=== PATIENT | female | born 1950 | race Caucasian/White ===

== ENCOUNTER 2020-01-12 10:17 | Outpatient (CLI) | payer MEDICARE, OTHER, SELFPAY ==
--- NOTE | ~2020-01-12 | MM_ITS ---
EXAMINATION: MM scrn pacheco implant BI w sally HISTORY: Screening mammogram TECHNIQUE: Craniocaudal and mediolateral oblique 3-D tomosynthesis images with implant displacement a nd synthetic 2-D images were generated. Craniocaudal and mediolateral oblique views of the breasts wi thout implant displacement were obtained using full field digital mammography. CAD analysis was submi tted and interpreted. COMPARISON: Comparison to multiple prior studies sequentially, with oldest reviewed study dated 08/2013. BREAST PARENCHYMAL COMPOSITION: The breasts are heterogeneously dense, which may obscure small masses . FINDINGS: Stable benign-appearing right breast mass, lower inner quadrant. There are subpectoral sili cone implants. There is no evidence of suspicious mass, calcification, or architectural distortion to suggest malignancy in either breast. There has been no suspicious interval change. IMPRESSION: 1. No mammographic evidence of malignancy. 2. Recommend routine screening mammography in one year. BI-RADS Category 2: Benign finding(s). Reviewed, dictated and finalized at location A.
== END 2020-01-12 10:18 | disposition home or self-care (01) ==
PROVIDERS: PCP Obstetrics & Gynecology; Visit Provider Obstetrics & Gynecology
DX: Z12.31 Encounter for screening mammogram for malignant neoplasm of breast (principal)
CPT/HCPCS: 77063; 77067

== ENCOUNTER 2021-04-03 08:54 | Outpatient (CLI) | payer MEDICARE, OTHER, SELFPAY ==
--- NOTE | ~2021-04-03 | MM_ITS ---
EXAMINATION: MM scrn pacheco implant BI w sally HISTORY: Screening mammogram, family history of breast cancer in her mother and sister. TECHNIQUE: Craniocaudal and mediolateral oblique 3-D tomosynthesis images with implant displacement a nd synthetic 2-D images were generated. Craniocaudal and mediolateral oblique views of the breasts wi thout implant displacement were obtained using full field digital mammography. CAD analysis was submi tted and interpreted. COMPARISON: 01/12/2020, 12/26/2018, 12/15/2017 BREAST PARENCHYMAL COMPOSITION: There are scattered areas of fibroglandular density. FINDINGS: A stable mass in the inner right breast is considered benign given the lack of interval jr nge. There is no evidence of suspicious mass, calcification, or architectural distortion to suggest m alignancy in either breast. There has been no suspicious interval change. IMPRESSION: 1. No mammographic evidence of malignancy. 2. Recommend routine screening mammography in one year. BI-RADS Category 2: Benign finding(s). Reviewed, dictated and finalized at location A.
== END 2021-04-03 08:55 | disposition home or self-care (01) ==
PROVIDERS: PCP Obstetrics & Gynecology; Visit Provider Obstetrics & Gynecology
DX: Z12.31 Encounter for screening mammogram for malignant neoplasm of breast (principal)
CPT/HCPCS: 77063; 77067

== ENCOUNTER 2022-06-19 13:03 | Outpatient (CLI) | payer MEDICARE, OTHER, SELFPAY ==
--- NOTE | ~2022-06-19 | MM_ITS ---
EXAMINATION: MM scrn pacheco implant BI w sally HISTORY: Screening mammogram, family history of breast cancer in her mother and sister. TECHNIQUE: Craniocaudal and mediolateral oblique 3-D tomosynthesis images with implant displacement a nd synthetic 2-D images were generated. Craniocaudal and mediolateral oblique views of the breasts wi thout implant displacement were obtained using full field digital mammography. CAD analysis was submi tted and interpreted. COMPARISON: 04/03/2021, 01/12/2020, 12/26/2018 BREAST PARENCHYMAL COMPOSITION: There are scattered areas of fibroglandular density. FINDINGS: Again noted is a stable mass of the inner right breast. There is no evidence of suspicious mass, calcification, or architectural distortion to suggest malignancy in either breast. There has be en no suspicious interval change. IMPRESSION: 1. No mammographic evidence of malignancy. 2. Recommend routine screening mammography in one year. BI-RADS Category 2: Benign finding(s). Reviewed, dictated and finalized at location A. RICAL ANALYSIS GROUP MANAGER
== END 2022-06-19 13:04 | disposition home or self-care (01) ==
LOC: ANHIMG 13:08
PROVIDERS: PCP Emergency Medicine; Visit Provider Obstetrics & Gynecology
DX: Z12.31 Encounter for screening mammogram for malignant neoplasm of breast (principal)
CPT/HCPCS: 77063; 77067

== ENCOUNTER 2023-06-20 08:48 | Outpatient (CLI) | payer MEDICARE, OTHER, SELFPAY ==
--- NOTE | ~2023-06-20 | MM_ITS ---
EXAMINATION: MM scrn pacheco implant BI w sally HISTORY: Screening mammogram, family history of breast cancer in her mother and sister. TECHNIQUE: Craniocaudal and mediolateral oblique 3-D tomosynthesis images with implant displacement a nd synthetic 2-D images were generated. Craniocaudal and mediolateral oblique views of the breasts wi thout implant displacement were obtained using full field digital mammography. CAD analysis was submi tted and interpreted. COMPARISON: 06/19/2022, 04/03/2021, 01/12/2020 BREAST PARENCHYMAL COMPOSITION: There are scattered areas of fibroglandular density. FINDINGS: A stable mass of the inner right breast is again noted, consistent with a benign finding. T here is no evidence of suspicious mass, calcification, or architectural distortion to suggest maligna ncy in either breast. There has been no suspicious interval change. IMPRESSION: 1. No mammographic evidence of malignancy. 2. Recommend routine screening mammography in one year. BI-RADS Category 2: Benign finding(s). Reviewed, dictated and finalized at location A. ETRICS TECHNICIAN
== END 2023-06-20 08:49 | disposition home or self-care (01) ==
PROVIDERS: PCP Emergency Medicine; Visit Provider Emergency Medicine
DX: Z12.31 Encounter for screening mammogram for malignant neoplasm of breast (principal)
CPT/HCPCS: 77063; 77067

== ENCOUNTER 2024-03-29 13:43 | Outpatient (CLI) | payer MEDICARE, OTHER, SELFPAY ==
--- NOTE | ~2024-03-29 | XR_ITS ---
EXAMINATION: XR ankle LT min 3V DATE: 03/29/2024 14:06 INDICATION: Left ankle pain. TECHNIQUE: 4 views of left ankle were obtained. COMPARISON: None. FINDINGS: Bone alignment is normal. No fracture. There are dystrophic calcifications dorsal to navicu lar. Joint spaces are normal. IMPRESSION: 1. No fracture. Reviewed, dictated and finalized at location A. IMPRESSION: 1. No fracture.
--- NOTE | ~2024-03-29 | XR_ITS ---
EXAMINATION: XR foot LT 2V DATE: 03/29/2024 14:05 INDICATION: Left foot pain. TECHNIQUE: 2 views of left foot were obtained. COMPARISON: None. FINDINGS: Alignment is normal. No fracture. There is mild osteoarthritis of first metatarsophalangeal joint. IMPRESSION: 1. Mild osteoarthritis of first metatarsophalangeal joint. Reviewed, dictated and finalized at location A.
== END 2024-03-29 13:44 | disposition home or self-care (01) ==
LOC: MICIMG 13:45
PROVIDERS: PCP Emergency Medicine; Visit Provider Emergency Medicine
DX: M19.072 Primary osteoarthritis, left ankle and foot (principal)
CPT/HCPCS: 73610; 73620

== ENCOUNTER 2024-11-09 00:33 | Day surgery (SDC) | payer MEDICARE, OTHER, SELFPAY ==
[2024-10-28 14:27] VITALS: BMI 21.3
--- OUTSIDE RECORDS SUMMARY | 2024-11-09 00:42 | XMS_ITS | Patient Health Record ---
Author Organization [employer] [place] [facility] Address [address] [address] [place] [address] Care Team Providers Care Equipment Coordinator Name Role Phone Unknown, Primary Primary Care Provider Unavailab tess SilvaHaresh Unavailable [phone] Josef Wang Unavailable [phone] EnricoSoraida Unavailable [phone] Allergies No Known Allergies Results Component Value Reference Range Notes Flu - Myla ([id number]) Reviewed date:06/22/2024 10:21:15 AM Interpretation:neg Performing Lab: Notes/Report: neg COVID - Myla ([id number]) Reviewed date:06/22/2024 10:21:34 AM Interpretation:neg Performing Lab: Notes/Report: neg Reason For Referral No Information Medications Medication SIG (Take, Route, Frequency, Duration) Notes Start Date End Date Status hydroCHLOROthiazide 25 MG 1 tablet in th e morning Orally Once a day Active Albuterol Sulfate HFA 108 (9 0 Base) MCG/ACT 2 puff as needed Inhalation every 4 hrs for 30 06/24/2024 Active Immunizations Vaccine Route Administration Date Status Comme nts Tetanus toxoid, absorbed IM Intramuscular 05/03/2024 Admin istered Social History Tobacco Use: Social History Observation Description Date Details (start date - stop date) Never Smoker NA - NA Sex Assigned At : Social History Observation Description Sex Assigned At Unknown Tobacco Control (Standard) Question Answer Notes Tobacco use: Nonsmoker AUDIT-C (Standard) Question Answer Notes Did you have a drink contain ing alcohol in the past year? Yes How often did you have six o r more drinks on one occasion in the past year? Never (0 point) How many drinks did you have on a typical day when you were drinking in the past year? 1 or 2 drinks (0 point) How often did you have a dri nk containing alcohol in the past year? Monthly or less (1 point) Points 1 Interpretation Negative Problems Problem Type SNOMED Code ICD Code Onset Dates Problem Status W/U Status Risk Notes Problem 383420874 Urinary frequency (R35.0) Active confirmed Problem 159206487 Vaginal burning (N94.9) Active confirmed Vital Signs Heart Rate 119 /min 06/22/2024 Temperature 103.3 degrees Fahrenheit 06/22/2024 Blood pressure diastolic 70 mm Hg 06/22/2024 Oximetry 97 % 06/22/2024 Height 68 in 06/22/2024 Blood pressure systolic 110 mm Hg 06/22/2024 Weight 146 lbs 06/22/2024 BMI 22.2 kg/m2 06/22/2024 Procedures Procedure Date Ordered Date Performed Result Body Sit e RSV ASSAY W/OPTIC (In house) 06/22/2024 06/22/2024 POSITIV E NEBULIZER TREATMENT 06/22/2024 N/A Encounters Encounter Location Date Provider Diagnosis [facility] [address] [place] [address] 05/03/2024 Josef Felipe Body mass index [BMI ] 22.0-22.9, adult Z68.22 and Laceration without foreign body of left index finger without damage to nail, initial encounter S[facility]A [facility] [address] [place] [address] 05/12/2024 Josef Felipe Body mass index [BMI ] 22.0-22.9, adult Z68.22 and Laceration without foreign body of left index finger without damage to nail, initial encounter S6.A [facility] [address] [place] [address] 06/22/2024 Soraida Fullannika Body mass index [BMI ] 22.0-22.9, adult Z68.22 ; Other general symptoms and signs R68.89 ; Upper respiratory tract infection, unspecified type J06.9 and Acute bronchiolitis due to respiratory syncytial virus J21.[address] [facility] [address] [place] [address] 06/22/2024 Haresh Silva Upper respiratory tract infection, unspecified type J06.[address] [facility] [address] [place] [address] 06/23/2024 Haresh Silva Assessments Encounter Date Diagnosis (ICD Code) Assessment Notes Treatment Notes Treatment Clinical Notes Section Notes 05/03/2024 Body mass index [BMI] 22.0-22.9, adult (ICD-10 - Z68.22) 05/03/2024 Laceration without foreign body of left index finger without damage to nail, initial encounter (ICD-10 - S61.211A) 05/03/2024: After discussion of potential risks versus potential benefit of suturing the wound closed including but not limited to pain, swelling, permanent scar, infection and injection site reaction patient has elected to proceed with the procedure. Prior to injection the site was prepped and cleaned using Betadine in the sterile fashion. Local anesthesia has been accomplished by injecting with 4 cc lidocaine 1% injected via 27-gauge needle. After confirming successful local anesthesia was further cleaned and flushed. Wound was closed using 4 interrupted sutures of 4.0 Prolene with P3 needle. Also applied one Steri-Strip. Patient tolerated procedure well no complaints, minimal bleeding. After completion of the procedure the wound was dressed using a nonstick dressing, roll gauze, & aluminum splint. Patient has been given wound care and advised to monitor for signs of infection as discussed. Will return the office in 8-10 days. 05/12/2024 Body mass index [BMI] 22.0-22.9, adult (ICD-10 - Z68.22) 06/22/2024 Body mass index [BMI] 22.0-22.9, adult (ICD-10 - Z68.22) 06/22/2024 Upper respiratory tract infection, unspecified type (ICD-10 - J06.9) 06/22/2024 Other general symptoms and signs (ICD-10 - R68.89) 05/12/2024 Laceration without foreign body of left index finger without damage to nail, initial encounter (ICD-10 - S61.211A) from 05/12/2024: wound was inspected, cleaned all sutures were carefully removed using sterile technique. Bandage applied. The initial injury was from an electric margin trimmer as such wound had very jagged edges and partial avulsions. Wound is not fully closed. Advised patient to continue to keep wound site clean and dry until all skin is fully closed and healed over. Patient has been advised to keep wound clean and dry. Patient has been advised to change dressing once a day. We have discussed the potential adverse effects of swimming or bathing in any kind of standing water such as rico, lakes, oceans, hot tubs. Patient has been advised if there are any signs or symptoms of infection that include but are not limited to rash, fever, and foul odor to return back to the office or go to the emergency room 05/03/2024: After discussion of potential risks versus potential benefit of suturing the wound closed including but not limited to pain, swelling, permanent scar, infection and injection site reaction patient has elected to proceed with the procedure. Prior to injection the site was prepped and cleaned using Betadine in the sterile fashion. Local anesthesia has been accomplished by injecting with 4 cc lidocaine 1% injected via 27-gauge needle. After confirming successful local anesthesia was further cleaned and flushed. Wound was closed using 4 interrupted sutures of 4.0 Prolene with P3 needle. Also applied one Steri-Strip. Patient tolerated procedure well no complaints, minimal bleeding. After completion of the procedure the wound was dressed using a nonstick dressing, roll gauze, & aluminum splint. Patient has been given wound care and advised to monitor for signs of infection as discussed. Will return the office in 8-10 days. 06/22/2024 Upper respiratory tract infection, unspecified type (ICD-10 - J06.9) Patient RSV. Discussed viral illness. Pt to start nebulizer treatments. Discussed infection percautions. RTC as needed or with worsening SOb. 06/22/2024 Acute bronchiolitis due to respiratory syncytial virus (ICD-10 - J21.0) Respiratory Syncytial Virus (RSV) Infection: Care Instructions material was printed Plan Of Treatment Pending Test Test Name Order Date Physician's Office Use ONLY - Urinalysis 06/24/2018 NEBULIZER TREATMENT 06/22/2024 Insurance Providers Payer Name Payer Address Payer Phone Subscriber Number Group Number Insured Name Patient Relationship to Insured Coverage Start Date Coverage End Date Medicare Unaligned [address] [place] [phone] [id number] Isabel Vaz Self - patient is the insured [employer] [address] [place] [phone] [id number] Isabel Vaz Self - patient is the insured Medical (General) History Medical History History ICD Code Edema Surgical History Surgery Date(Month/Year) S/P right and left labrum repair shoulde r Right elbow surgery Hospitalization History Reason Date(Month/Year) See Surgical Hx
--- OUTSIDE RECORDS SUMMARY | 2024-11-09 00:42 | XMS_ITS | Referral Summary ---
Author Organization [facility] Address [address] [place] [address] Care Team Providers Care Decal Cutter Name Role Phone Mehul Gonzalez MD Primary Care Provider Allergies No known active allergies Medications BIOTIN ORAL Take as directed A ctive CALCIUM ORAL pt takes 600 mg daily Active estradiol (ESTRACE) 0.01 % (0.1 mg/gram) vaginal cream Insert into the vagina. Active hydroCHLOROthia zide (HYDRODIURIL) 25 mg tablet 8 Active hydroCHLOROthia zide (MICROZIDE) 12.5 mg capsule Take by mouth. Active magnesium oxide 500 mg capsule TAKE DIRECTED. Active polyethylene glycol-electrol ytes (NULYTELY) 420 gram solutionIndicat ions:Bowel Evacuation Please follow instructions in prep packet 7 Active fluorometholone (FML) 0.1 % ophthalmic suspensionIndic ations:Superfic ial punctate keratitis of both eyes Administer 1 drop into both eyes 3 (three) times a day. 5 mL 1 9 Active Additional Information Patient not taking.Reported on 06/08/2019 vit C,B-An-qhniy-ethan tein-zeaxan 250-90-40-1 mg capsule Active alendronate (FOSAMAX) 70 mg tablet Take 1 tablet (70 mg total) by mouth every 7 days Take in the morning with a full glass of water, on an empty stomach, and do not take anything else by mouth or lie down for the next 30 min. 12 tablet 3 2 Active calcium carbonate-vitam in D3 1,500 mg (600 mg elemental)-500 unit capsule Active mometasone (ELOCON) 0.1 % cream APPLY TO THE AFFECTED AREA ON SKIN NEEDED 45 g 1 3 Active Active Problems Problem Noted Date Diagnosed Date Follicular cyst of the skin and subcutaneous tissue, unspecified 11/27/2018 Meibomian gland disease 08/07/2018 Age-related nuclear cataract of both eyes 2018 Superficial punctate keratitis of both eyes 07/15 Posterior vitreous detachment of left eye 2018 Encounter for removal of sutures 12/19/2017 Scars 12/11/2017 Skin neoplasm 12/11/2017 Keratinous cyst 12/11/2017 Excoriated papule 12/11/2017 Osteopenia 04/17/2017 Osteopenia 04/17/2017 Benign neoplasm of skin of trunk 10/31/2015 Asymmetrical sensorineural hearing loss 06/21/20 15 Conductive hearing loss of left ear 03/24/2015 Presbycusis 03/24/2015 Inflamed seborrheic keratosis 12/02/2013 Eczema 12/02/2013 Varicose veins of both legs with edema 3 Eczema 05/24/2013 Social History Tobacco Use Types Packs/Day Years Used Date Smoking Tobacco: Former Smokeless Tobacco: Never Tobacco Cessation:Counseling Given: Not Answered Personal Safety Answer Date Recorded Getting School Help Needed Not on file 06/29 Comments Unknown Sex and Gender Information Value Date Recorded Sex Assigned at Not on file Legal Sex Female 9:37 AM DOCTOR OF PHARMACY Gender Identity Not on file Sexual Orientation Not on file Occupation Industry Job Start Date Job End Date Retired Not on file Not on file Not on file Last Filed Vital Signs Vital Sign Reading Time Taken Comments Blood Pressure 114/72 04/17/2017 10:09 AM CDT Pulse 68 04/17/2017 10:09 AM CDT Temperature - - Respiratory Rate - - Oxygen Saturation 100% 04/17/2017 10:09 AM CDT Inhaled Oxygen Concentration - - Weight 64 kg (141 lb) 03/17/2024 3:09 PM CDT Height 174 cm (5' 8.5 ) 03/17/2024 3:09 PM CDT Body Mass Index 21.13 03/17/2024 3:09 PM CDT Plan of Treatment Not on file Procedures Procedure Name Priority Date/Time Associated Diagnosis Comments DEXA TBS AXIAL SKELETON BONE DENSITY 1 OR MORE SITES Schedule Routine, Read Routine (OP Routine) 03/17/2024 3:09 PM CDT Osteopenia of multiple sites COLONOSCOPY REPORT 04/28/2017 from Last 3 Months or Most Recently Relevant to Health Maintenance Results * Dexa TBS Axial Skeleton Bone Density 1 or more sites (03/17/2024 3:09 PM CDT) Anatomical Region Laterality Modality Wrist, Body N/A Radiographic Ifrah ging Narrative 03/17/2024 7:55 PM CDT Patient Name: Hal Mckeon Date of : 1950 Date of scan: 03/17/2024 Bone mineral density was performed on a [employer]oL[employer] Discovery Densitometer. Based on machine cross-calibration and precision studies the least significant changes of this densitometer is 0.024 g/cm2 at the spine, 0.020 g/cm2 at the total proximal femur, and 0.014g/cm2 at the forearm. HISTORY: This is a 74 y.o. postmenopausal female with a history of osteoporosis. She reports that she has quit smoking. She has never used smokeless tobacco. Currently on treatment with calcium, vitamin D, and diuretics and previously treated with alendronate (Fosamax). INDICATIONS: Menopause status and history of osteoporosis. FINDINGS: BONE MINERAL DENSITY OF THE LUMBAR SPINE Bone Mineral Density (BMD) of the lumbar spine was measured from L1-L4 and the average density was calculated to be 0.886 gm/cm2. This corresponds to a T-score (standard deviations from the mean of young adults) of -1.5. When compared to the previous study of 06/11/2022 there has been a -0.031 gm/cm (-3.4%) decrease in bone density that is considered significant. BONE MINERAL DENSITY OF THE PROXIMAL FEMUR Bone Mineral Density (BMD) of the left hip total was found to be 0.783 gm/cm2. This corresponds to a T-score standard deviations from the mean of young adults of -1.3. Femoral neck is 0.731 gm/cm2 with a T-score (standard deviations from the mean of young adults) of -1.1. When compared to the previous study of 06/11/2022 there has been no significant changes in bone density. SUMMARY: Bone mineral density shows evidence of low bone mass at the lumbar spine and proximal femur and moderately increased fracture risk (Osteopenia). There has been a significant decrease in bone density since previous measurement. The lumbar spine Trabecular Bone Score is 1.324 which suggests normal bone microarchitecture, compared to the general population. Final decisions regarding diagnostic or therapeutic recommendations should include BMD, TBS, additional clinical risk factors as well the clinical context of the patient. Please see attached TBS results for further details. ADDITIONAL COMMENTS: Postmenopausal Women and Men Over 50: Diagnostic criteria: Osteoporosis: BMD at or below -2.5 T-score; Osteopenia (low bone mass): BMD between -1.0 and -2.5 T-score. If the patient has a history of a fragility fracture, a fracture that occurred with trauma equivalent to a fall from a standing position or less, then the diagnosis is osteoporosis regardless of bone density. The history and data sections of the bone mineral density scan were prepared by Rosi Peterson(Christopher) CBDSarah who is accredited by the International Society of Clinical Densitometry. The overall patient assessment and scan interpretation were performed by Naomie Almanzar MD who is certified by the International Society of Clinical Densitometry. [id number] Naomie Almanzar MD IMG DXA PROCEDURES Final Resu lt * COLONOSCOPY REPORT (04/28/2017) Anatomical Region Laterality Modality Other Provider Scanning GI PROCEDURE ORDERABLES Final Result from Last 3 Months or Most Recently Relevant to Health Maintenance Insurance MEDICARE Member Subscriber Plan / Payer (Ef fective 2017-Present) Name:HAL MCKEON Member ID:[id number] Relation to Subscriber:Self Name:Hal Mckeon Subscriber ID:[id number] Payer ID:[id number] Group ID:Not on file Type:MEDICARE TRADITIONAL Address: [address] [place] [phone] [employer] MED[employer] [employer] Care Teams Decal Cutter Relationship Specialty Start Date End Date Mehul Gonzalez MD PCP - General 04/17/17
--- OUTSIDE RECORDS SUMMARY | 2024-11-09 00:42 | XMS_ITS | Clinical Summary ---
Author Organization [facility] Address [address] [place] [address] Care Team Providers Care Sql Application Developer Name Role Phone Mehul Gonzalez MD Primary Care Provider [phone] Allergies No known active allergies Medications BIOTIN [...] Information Patient not taking.Reported on 06/08/2019 vit C,E-Jv-uwyry-ethan tein-zeaxan 250-90-40-1 mg capsule Active alendronate (FOSAMAX) [...] both legs with edema 3 Eczema 05/24/2013 Surgical History Surgery Date Site/Laterality Comments ELBOW SURGERY Medical History Medical History Date Comments Cancer (HCC) Osteoporosis Urinary tract infection Family History Medical History Relation Name Comments Cancer Brother Family history of malignant neoplasm - (Added by TW Conv) Alzheimer's disease Father Family h istory of Alzheimer's disease - (Added by TW Conv) Heart disease Father Family history of cardiac disorder - (Added by TW Conv) Prostate cancer Father Family histo ry of malignant neoplasm of prostate - (Added by TW Conv) Skin cancer Father Family history of skin cancer - (Added by TW Conv) Breast cancer Mother Family history of malignant neoplasm of breast - (Added by TW Conv) Heart disease Mother Family history of cardiac disorder - (Added by TW Conv) Stroke Mother Family history of cerebrovascular accident - (Added by TW Conv) Breast cancer Sister Family history of malignant neoplasm of breast - (Added by TW Conv) Relation Name Status Comments Brother Father Alive Mother Alive Sister Social History Tobacco Use Types Packs/Day Years Used Date Smoking Tobacco: Former Smokeless Tobacco: Never Tobacco Cessation:Counseling Given: Not Answered Personal Safety Answer Date Recorded Getting School Help Needed Not on file 12/17 /2023 Comments Unknown Sex and Gender Information Value Date Recorded Sex Assigned at Not on file 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 Gender Identity Not on file Sexual Orientation Not on file Occupation Industry Job Start Date Job End Date Retired Not on file Not on file Not on file Obstetrics History Last Filed Vital Signs Vital Sign Reading [...] 03/17/2024 3:09 PM CDT Plan of Treatment Health Maintenance Due Date Last Done Comments Breast Cancer Screening-Mammogram 1950 Depression Screening 1950 Fall Risk Assessment 1950 Hepatitis C Screening 1950 Hepatitis B Screening 01/20/1970 Well Visit 65+ 01/20/2017 Pneumococcal vaccine 65+ (2 of 2 - PPSV23) 03/24/2018 03/24/2017 Zoster Vaccine (2 of 2) 03/03/2020 01/07/2020 DTaP/Tdap/Td Vaccine (2 - Td or Tdap) 02/03/2024 02/02/2014 Covid-19 Vaccine (4 - 2023-2 5 season) 2024 12/03/2021, 09/15/2020, 08/25/2020 Influenza Vaccine (#1) 2024 9, 05/29/2017, 06/13/2015, Additional history exists Osteoporosis Screening-Bone Density Scan 03/17/2026 03/17/2024, 06/11/2022, 12/05/2020, Additional history exists Colon Cancer Screening-Colonoscopy 04/28/2027 04/28/2017 Colon Cancer Screening-CT Colonography Discontinued 04/28/2017 Colon Cancer Screening-DNA Stool Discontinued 04/28/20 17 Colon Cancer Screening-FIT Discontinued 04/28/2017 Colon Cancer Screening-Sigmoidoscopy Discontinued 04/28/2017 Procedures Procedure Name Priority Date/Time Associated Diagnosis [...] Bone mineral density was performed on a Holoyouwho Discovery Densitometer. Based on machine cross-calibration and [...] by the International Society of Clinical Densitometry. [id number] Naomie Almanzar MD IMG DXA PROCEDURES Final Resu lt * COLONOSCOPY REPORT (04/28/2017) Anatomical Region Laterality Modality Other Provider Scanning GI PROCEDURE ORDERABLES Final Result from Last 3 Months or Most Recently Relevant to Health Maintenance Insurance MEDICARE [employer] [place] MEDICARE [employer] [place] Care Teams Sql Application Developer Relationship Specialty Start Date End Date Mehul Gonzalez MD [facility] - General 04/17/17
--- OUTSIDE RECORDS SUMMARY | 2024-11-09 00:42 | XMS_ITS | Clinical Summary ---
Author Organization [facility] Address [address] [place] [address] Phone Care Team Providers Care Grounding Engineer Name Role Phone Unavailable Primary Care Provider Unavailabl e Allergies No known active allergies Medications nitrofurantoin (MACROBID) 100 mg capsule Take 1 capsule by mouth twice daily 10 Capsule 05/28/2018 1:49 PM COMMERCIAL SINGER 05/28/2018 Active Encounters Date Type Department Care Team Description 09/29/2024 External Device Data [facility] Provider, Abstract 09/18/2024 External Device Data [facility] Provider, Abstract 09/17/2024 External Device Data [facility] Provider, Abstract 09/14/2024 External Device Data [facility] Provider, Abstract 08/31/2024 External Device Data [facility] Provider, Abstract from Last 3 Months Social History Tobacco Use Types Packs/Day Years Used Date Smoking Tobacco: Never Assessed Comments Unknown Sex and Gender Information Value Date Recorded Sex Assigned at Not on file Legal Sex Female 8:24 AM COMMERCIAL SINGER Gender Identity Not on file Sexual Orientation Not on file Plan of Treatment Health Maintenance Due Date Last Done Comments DTAP/TDAP/TD VACCINES (1 - Tdap) 01/20/1971 BREAST CANCER SCREENING 1992 COLORECTAL SCREENING 01/20/1997 Colorectal Cancer Screening 01/20/1997 FIT-DNA Q 3 years 01/20/1997 FIT/FOBT Q 1 year 01/20/1997 Flex Sig/CT Colonography Q 5 years 01/20/1997 PNEUMOCOCCAL VACCINE 50+ YEA RS (1 of 1 - PCV) 01/20/2002 ZOSTER VACCINE (1 of 2) 01/20/2002 INFLUENZA VACCINE (#1) 2024 06/03/2016 RSV VACCINE (60+ or ) (1 - 1-dose 75+ series) 01/20/2027 OSTEOPOROSIS SCREENING 03/17/2029 , 03/17/2024, 06/11/2022, Additional history exists Insurance RX [employer] RX Member Subscriber Plan / Payer (Ef fective for All Dates) Name:McintyreIsabel Relation to Subscriber:Self Name:Mcintyre, Isabel Payer ID:Not on file Group ID:[id number] Type:RX Medicare Part D Address: [place] MEDICARE PART A AND B [facility]
--- OUTSIDE RECORDS SUMMARY | 2024-11-09 00:42 | XMS_ITS ---
Author Organization [facility] Address [address] [facility] [address] [place] [address] Care Team Providers Care Security Solutions Architect Name Role Phone Unknown, Primary Primary Care Provider Unavailab Haresh Terrell Unavailable [phone] REASON FOR VISIT Rx Medications Medication SIG (Take, Route, Fr equency, Duration) Notes Start Date End Date Status Azithromycin 250 MG 2 tablet on the firs t day, then 1 tablet daily for 4 days Orally Once a day for 5 day(s) 06/28/2024 A ctive Social History Sex Assigned At : Social History Observation Description Sex Assigned At Unknown Encounters Encounter Location Date Provider [facility] [address] [place] [address] 06/22/2024 Haresh Silva Upper respiratory tract infection, unspecified type J06.9 Assessments Encounter Date Diagnosis (ICD Code) Assessment Notes Treatment Notes Treatment Clinical Notes Section Notes 06/22/2024 Upper respiratory tract infection, unspecified type (ICD-10 - J06.9) Plan Of Treatment Medication Medication Name Sig Start Date Stop Date Notes Azithromycin 250 MG 2 tablet on the firs t day, then 1 tablet daily for 4 days Orally Once a day for 5 day(s) 06/28/2024 Progress Notes * Isabel MCKEON MDOB:[birth year] (74 yo F)Acc No.[id number]:06/22/2024 Patient: Isabel MEEK :1950 A ge:74 Y S ex:Female Address:[address] [place] [address] [place], [place] [address] * Refills Refill Azithromycin Tablet, 250 MG, Orally, 6, 2 tablet on the first day, then 1 tablet daily for 4 days, Once a day, 5 day(s), Refills=0 * true * Date: Generated for Kirsten rasheed/Amanda/Brijeshitting on: 0 11/09/2024 01:40 AM EDT
--- OUTSIDE RECORDS SUMMARY | 2024-11-09 00:42 | XMS_ITS ---
Author Organization [facility] Address [address] [facility] [address] [place] [address] Care Team Providers Care Skin Fitter Name Role Phone Unknown, Primary Primary Care Provider Unavailab tess Haresh Silva Unavailable [phone] FullSoraida roblero Unavailable [phone] Results Component Value Reference Range Notes Flu - Myla ([id number]) Reviewed date:06/22/2024 10:21:15 AM Interpretation:neg Performing Lab: Notes/Report: neg COVID - Myla ([id number]) Reviewed date:06/22/2024 10:21:34 AM Interpretation:neg Performing Lab: Notes/Report: neg REASON FOR VISIT Sore throat/mucus/cough/--[facility], received zpak---S4 Medications Medication SIG (Take, Route, Frequency, Duration) Notes Start Date End Date Status hydroCHLOROthiazide 25 MG 1 tablet in th e morning Orally Once a day Active Albuterol Sulfate HFA 108 (9 0 Base) MCG/ACT 2 puff as needed Inhalation every 4 hrs for 30 06/24/2024 Active Social History Sex Assigned At : Social History Observation Description Sex Assigned At Unknown Vital Signs Height 68 in 06/22/2024 Weight 146 lbs 06/22/2024 Blood pressure systolic 110 mm Hg 06/22/20 24 Blood pressure diastolic 70 mm Hg Temperature 103.3 degrees Fahrenheit Heart Rate 119 /min 06/22/2024 Oximetry 97 % 06/22/2024 BMI 22.2 kg/m2 06/22/2024 Procedures Procedure Date Ordered Date Performed Result Body Sit e NEBULIZER TREATMENT 06/22/2024 N/A RSV ASSAY W/OPTIC (In house) 06/22/2024 06/22/2024 POSITIV E Encounters Encounter Location Date Provider Diagnosis Cheryle Delgadillo [address] [facility] [place] [address] 06/22/2024 Soraida Fullgrapp Body mass index [BMI ] 22.0-22.9, adult Z68.22 ; Other general symptoms and signs R68.89 ; Upper respiratory tract infection, unspecified type J06.9 and Acute bronchiolitis due to respiratory syncytial virus J21.0 Assessments Encounter Date Diagnosis (ICD Code) Assessment Notes Treatment Notes Treatment Clinical Notes Section Notes 06/22/2024 Body mass index [BMI] 22.0-22.9, adult (ICD-10 - Z68.22) 06/22/2024 Other general symptoms and signs (ICD-10 - R68.89) 06/22/2024 Upper respiratory tract infection, unspecified type (ICD-10 - J06.9) Patient RSV. Discussed viral illness. Pt to start nebulizer treatments. Discussed infection percautions. RTC as needed or with worsening SOb. 06/22/2024 Acute bronchiolitis due to respiratory syncytial virus (ICD-10 - J21.0) Respiratory Syncytial Virus (RSV) Infection: Care Instructions material was printed Plan Of Treatment Medication Medication Name Sig Start Date Stop Date Notes Albuterol Sulfate HFA 108 (9 0 Base) MCG/ACT 2 puff as needed Inhalation every 4 hrs for 30 06/24/2024 Treatment Notes Assessment Notes Upper respiratory tract infe ction, unspecified type Patient RSV. Discussed viral illness. Pt to start nebulizer treatments. Discussed infection percautions. RTC as needed or with worsening SOb. Acute bronchiolitis due to r espiratory syncytial virus Respiratory Syncytial Virus (RSV) Infection: Care Instructions material was printed Pending Test Test Name Order Date NEBULIZER TREATMENT 06/22/2024 Next Appt Details Follow Up: prn, Reason: If n o improvement or worsening of symptoms Progress Notes * Isabel MCKEON MDOB:[birth year] (74 yo F)Acc No.[id number]:06/22/2024 Patient: Isabel MEEK Provider: Meggan Weston PA-C :1950 A ge:74 Y S ex:Female Date:06/22/2024 Address:[address] [place] [address] [place], [id number] Pcp:Primary Unknown Subjective: * Chief Complaints: * S ore throat/mucus/cough/--[facility], received zpak---S4 * HPI: I nterim History: TeleVisit Consent P atient consents to being treated by provider using telehealth visits, virtual check-in or e-visit type of service. Patients was advised that co-pays and balances may apply and assumes financial responsibility for applicable charges. Y es v isit was completed via: [facility] Coronavirus Screening H ave you had a fever of 100.4 or higher or experienced flulike symptoms within the last 14 days? Y es H as anyone in your household or immediate care experienced a recent onset of flulike symptoms including fever of 100.4 or higher, cough or difficulty breathing? N o H ave you or anyone in your household traveled by plane or cruise within the last 14 days? N o H ave you or any immediate family member come into contact with a patient with confirmed COVID-19 Coronavirus infection within the last 14 days??No H ave you or anyone in your household been tested for COVID-19 in the last 14 days? Y es T est result: N egative Patient presents today for upper respiratory symptoms for the past few days. Patient reports productive cough with expectoration, nasal congestion. Patient denies fever, chills, myalgias, shortness of breath at rest. Patient reports shortness of breath with coughing fits. was evaluated at urgent care 4 days ago and given azithromycin. Patient has taken vvrm-qjs-nvozznk medication without relief of symptoms. Patient presents for further evaluation. * ROS: M D ROS: Constitutional D enies:, Fever, Chills, Body Aches, Fatigue . H EENT P atient reports nasal congestion. Patient denies: HEAD:,lightheadedness, dizziness EYE: , Vision changes, Pain, Redness EAR:, Hearing loss,, Ear Pain NOSE:, Sinus Pain THROAT:, Sore Throat, Difficulty Swallowing Neck - Denies, Swollen Glands, Stiffness. R espiratory R eports productive cough with mucus. D enies Shortness of Breath at rest.. C ardiovascular D enies, Chest Pain, Palpitations, Irregular Heart Beat. G astrointestinal D enies , Changes in appetite, Heartburn, Nausea, Vomiting, Diarrhea, Constipation. G enitourinary D enies , Burning with Urination, Urinary frequency, Urinary urgency. M usculoskeletal D enies: , Stiffness, Muscle Pain, Weakness, Low back pain, Limitation of Movement. D ermatology D enies: , Rash, Itching, Burning , Redness. N eurology D enies: , Headache, Syncope, Seizures, Paralysis, Numbness/loss of sensation.?Hematology/Oncology Patient denies easy bleeding. * Medical History: * Surgical History: R ight elbow surgery S/P right and left labrum repair shoulder * Hospitalization/Major Diagno stic Procedure: S ee Surgical Hx * Family History: F ather: . M other: . 4 brother(s) , 3 sister(s) . 1 son(s) , 1 daughter(s) . . * Social History: A lcohol: A pollo C D id you have a drink containing alcohol in the past year: Yes, How often did you have a drink containing alcohol last year?: Never (0 points), How many drinks did you have on a typical day when you are drinking in the past year?: 1 or 2 (0 points), How often did you have six or more drinks on one occasion in the past year?: Never (0 points), Points: 0, Interpretation: Negative. * Medications: T akinghydroCHLOROthiazide 25 MG Tablet 1 tablet in the morning Orally Once a day Medication List reviewed and reconciled with the patientTaking hydroCHLOROthiazide 25 MG Tablet 1 tablet in the morning Orally Once a day Medication List reviewed and reconciled with the patient * Allergies: n o[Allergies Verified] Objective: * Vitals: Ht 68 in 06/22/2024 09:32:43 AM EST Wt* 146lbs 06/22/2024 09:58:45 AM EST Sharlene ch BP* 110/70mm Hg 06/22/2024 10:31:56 AM PARIS ch Temp* 103.3F 06/22/2024 10:31:56 AM PAR[place] ch HR* 119/min 06/22/2024 10:31:56 AM PAR[place] ch Oxygen sat %* 97% 06/22/2024 10:31:56 AM PARIS ch No Pain Present* 0 06/22/2024 10:31:56 AM PARIS ch BMI* 22.2Index 06/22/2024 09:58:45 AM PARIS ch * Examination: G eneral Examination: GENERAL APPEARANCE: No acute distress, resting comfortably in the chair. NECK/THYROID: Supple, no jugular vein distention. CHEST: Equal expansion, no increased work of breathing.? LUNGS: w heezing throughout, diminished at bases.. HEART: Regular rate and rhythm, no peripheral vascular edema. ABDOMEN: Soft, nontender to palpation, bowel sounds present and normal. . SKIN Warm, dry. PSYCH: Alert and orient to person, place and time, normal mood and affect. . Assessment: * Assessment: 1. B dandy mass index [BMI] 22.0-22.9, adult - Z68.22 2 . O ther general symptoms and signs - R68.89 3 . U pper respiratory tract infection, unspecified type - J06.9 (Primary) 4 . A cute bronchiolitis due to respiratory syncytial virus - J21.0 Plan: * Treatment: 2. O ther general symptoms and signs L AB: Flu - Myla ([id number]) (Collection Date & Time - 06/22/2024) n eg L AB: COVID - Myla ([id number]) (Collection Date & Time - 06/22/2024) n eg P rocedure: RSV ASSAY W/OPTIC (In house) (Performed Date - 06/22/2024) P OSITIVE 3. A cute bronchiolitis due to respiratory syncytial virus Notes: Respiratory Syncytial Virus (RSV) Infection: Care Instructions material was printed ? * Procedure Codes: 3 078F DIAST BP < 80 MM [id number] SYST BP LT 130 MM [id number] BMI<30 AND >=22 CALC & [id number] MED LIST DOCD IN [id number] RVW MEDS BY RX/DR IN [id number] Influenza A&B - second unit, Modifiers: QW 6[address] YISEL-CoV-2 Antigent Test REID, Modifiers: [id number] NEB/MDI RX [id number] N-INVAS EARPLS OXIMTRY FO2 SAT 1 [id number] RSV ASSAY W/OPTIC * Follow Up: p rn (Reason: If no improvement or worsening of symptoms) * * Sign off status: Completed true * Provider: Meggan Weston PA-C Date: 1 08/23/2023 Generated for Faviani ng/Amanda/eTransmitting on: 0 11/09/2024 01:40 AM EDT History and Physical Notes * HPI (History of Present Illness) Category Sub-Category Detail Notes Category Not es Interim History Coronavirus Screening Have you h ad a fever of 100.4 or higher or experienced flulike symptoms within the last 14 days?: Yes Patient presents today for upper respiratory symptoms for the past few days. Patient reports productive cough with expectoration, nasal congestion. Patient denies fever, chills, myalgias, shortness of breath at rest. Patient reports shortness of breath with coughing fits. was evaluated at urgent care 4 days ago and given azithromycin. Patient has taken djbk-eeo-ldnnsyy medication without relief of symptoms. Patient presents for further evaluation. Has anyone in your household or immediate care experienced a recent onset of flulike symptoms including fever of 100.4 or higher, cough or difficulty breathing?: No Have you or anyone in your h ousehold traveled by plane or cruise within the last 14 days?: No Have you or any immediate [facility] member come into contact with a patient with confirmed COVID-19 Coronavirus infection within the last 14 days?: No Have you or anyone in your h ousehold been tested for COVID-19 in the last 14 days?: Yes Test result:: Negative TeleVisit Consent Patient consents to being treated by provider using telehealth visits, virtual check-in or e-visit type of service. Patients was advised that co-pays and balances may apply and assumes financial responsibility for applicable charges.: Yes visit was completed via:: [facility] Examination Category Sub-Category Detail Notes Category Not es General Examination GENERAL APPEARANCE: No acute distress, resting comfortably in the chair NECK/THYROID: Supple, no jugular v ein distention HEART: Regular rate and rhy thm, no peripheral vascular edema CHEST: Equal expansion, no increased work of breathing LUNGS: wheezing throughout, diminished at bases. ABDOMEN: Soft, nontender to p alpation, bowel sounds present and normal. SKIN Warm, dry PSYCH: Alert and orient to person, place and time, normal mood and affect.
--- OUTSIDE RECORDS SUMMARY | 2024-11-09 00:42 | XMS_ITS | Clinical Summary ---
Author Organization [facility] [employer] Address [address] [facility] [place] [address] Care Team Providers Care Storyboard Artist Name Role Phone Mehul Gonzalez MD Primary Care Provider [phone] Source Comments [facility],non-owned Affiliates and Associated Physician Practices is amultiple site organization consisting of ambulatory clinics and hospital sitesin [place], [place], [place]. This disclosure is being madepursuant to the Care Everywhere program and may not contain all information available regarding this patient. Last updated 18.[facility] Allergies No known active allergies Medications * Be aware that medications may not be up to date on this document. Alwaysverify current medications with the patient. 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 Gender Identity Not on file Sexual Orientation Not on file Last Filed Vital Signs Vital Sign Reading Time Taken Comments Blood Pressure 126/84 10/09/2020 11:37 AM CDT Pulse 72 10/09/2020 11:37 AM CDT Temperature 36.6 C (97.9 F) 10/09/2020 11:37 AM CDT Respiratory Rate 16 10/09/2020 11:37 AM CDT Oxygen Saturation 99% 10/09/2020 11:37 AM CDT Inhaled Oxygen Concentration - - Weight 60.8 kg (134 lb) 10/09/2020 11:37 AM CDT Height 174 cm (5' 8.5 ) 10/09/2020 11:37 AM CDT Body Mass Index 20.08 10/09/2020 11:37 AM CDT Plan of Treatment Health Maintenance Due Date Last Done Comments BONE DENSITY TESTING 1950 COLOGUARD (AGES 45-75) - COLON CA SCREENING 1950 COLON MONITORING 1950 COLONOSCOPY - COLON CA SCREENING 1950 CT COLONOGRAPHY - COLON CA SCREENING 1950 Colorectal Cancer Screening 1950 FIT - COLON CA SCREENING 1950 FLEX SIG - COLON CA SCREENING 1950 LIPID TESTING 1950 MAMMOGRAM 1950 HEPATITIS C SCREENING 01/16/1970 DTAP/TDAP/TD VACCINES (1 - Tdap) 01/20/1971 PNEUMOCOCCAL VACCINE 50+ (1 of 1 - PCV) 01/20/2002 ZOSTER VACCINE (1 of 2) 01/20/2002 COVID-19 VACCINE (3 - season) 2024 09/15/2020, 08/25/2020 DEPRESSION SCREENING 07/14/2024 INFLUENZA VACCINE (Season Ended) 2025 04/16/2019, 06/03/2016, 06/13/2015, Additional history exists Respiratory Syncytial Virus (RSV) Vaccine Pt: or over 60 yrs (1 - 1-dose 75+ series) 01/20/2027 HEPATITIS B VACCINE Aged Out No longe r eligible based on patient's age to complete this topic HIB VACCINE Aged Out No longer eligi ble based on patient's age to complete this topic HPV VACCINE Aged Out No longer eligi ble based on patient's age to complete this topic MENINGOCOCCAL (Group B) VACCINE SHARED DECISION-MAKING Aged Out No longer eligible based on patient's age to complete this topic MENINGOCOCCAL GROUPS A/C/Y/W VACCINE Aged Out No longer eligible based on patient's age to complete this topic Insurance [employer] MEDICARE Care Teams Storyboard Artist Relationship Specialty Start Date End Date Mehul Gonzalez MD [address] [facility] [address] [place] [address] PCP - General Family Medicine 07/11/17
--- OUTSIDE RECORDS SUMMARY | 2024-11-09 00:42 | XMS_ITS | Encounter Summary ---
Author Organization [facility] Address [address] [place] [address] Care Team Providers Care Mechanical Equipment Sales Engineer Name Role Phone Mehul Gonzalez MD Primary Care Provider Encounter Details Date Type Department Care Team (Late st Contact Info) Description 04/08/2024 Telephone [facility] Specialty Services [address] [place] [phone] Miscellaneous, Not In File Social History Tobacco Use Types Packs/Day Years Used Date Smoking Tobacco: Former Smokeless Tobacco: Never Personal Safety Answer Date Recorded Getting School Help Needed Not on file 06/29 Comments Unknown Sex and Gender Information Value Date Recorded Sex Assigned at Not on file 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
--- OUTSIDE RECORDS SUMMARY | 2024-11-09 00:42 | XMS_ITS ---
Author Organization [employer] [facility] Address [address] [place] [address] Care Team Providers Care Form Maker Plaster Name Role Phone Unknown, Primary Primary Care Provider Unavailab Haresh Terrell Unavailable [phone] REASON FOR VISIT meds from yesterdays appt Social History Sex Assigned At : Social History Observation Description Sex Assigned At Unknown Encounters Encounter Location Date Provider Diagnosis [facility] [address] [place] [address] 06/23/2024 Haresh Silva Plan Of Treatment No Information Progress Notes * Isabel MCKEON MDOB:[birth year] (74 yo F)Acc No.[id number]:06/23/2024 Patient: Ta Isabel MASON :1950 A ge:74 Y S ex:Female Address:[address] [place] [address] [facility] [address] * true * Date: Generated for Printi ng/Faxing/eTransmitting on: 0 11/09/2024 01:39 AM EDT
[2024-11-09 06:52] VITALS: BP 103/45; PULSE 75; RESP 20; TEMP 36.1; O2SAT 100; BMI 21.6
[2024-11-09] MEDS: LACTATED RINGERS 1,000 ML 150 ML IV CONT (07:06)
--- NOTE | 2024-11-09 07:17 | P.PNAN_ITS ---
Anes - Initial Pre Proc Eval Procedure: Operation Date: 11/09/24 08:00 Proposed Procedures p Screening Colonoscopy - Adrien Gomez MD Date/Time: 11/09/24 07:17 Surgeon: Adrien Gomez MD Pre Op Diagnosis: Encounter for screening for malignant neoplasm of Patient Data Age: 74 Gender: F Height: 1.73 m Weight: 64.5 kg Last Vital Signs Temp 96.9 F L 11/09/24 06:52 Pulse 75 11/09/24 06:52 Resp 20 11/09/24 06:52 BP 103/45 L 11/09/24 06:52 Pulse Ox 100 11/09/24 06:52 O2 Del Method Room Air 11/09/24 06:52 Allergies Allergy/AdvReac Type Severity Reaction Status Date / Time No Known Allergies Allergy Unknown Verified 11/09/24 06:51 Home Medications ?Medication ?Instructions ?Recorded ?Confirmed ?Type biotin 5 mg capsule 5 mg PO DAILY 07/12/21 11/09/24 History calcium carbonate (Calcium 600) 600 mg PO DAILY 07/12/21 11/09/24 History cholecalciferol (vitamin D3) 25 25 mcg PO DAILY 07/12/21 11/09/24 History mcg (1,000 unit) capsule hydrochlorothiazide 25 mg tablet 25 mg PO DAILY 07/12/21 11/09/24 History magnesium 250 mg tablet 500 mg PO DAILY 07/12/21 11/09/24 History omega-3 fatty acids 1,000 mg 1,000 mg PO DAILY 07/12/21 11/09/24 History capsule (Fish Oil Concentrate) Patient hx anesthesia problems: none Family hx anesthesia problems: none Results Review: All pre-operative results and documents have been reviewed as part of the pre- operative evaluation. [facility] Past Medical History Medical History Skin cancer Surgical History Surgical History H/O elbow surgery Bilateral History of shoulder surgery Bilateral Family History Family History Sibling Carcinoma of colon Sibling Acute myocardial infarction Mother Acute myocardial infarction Social History Social History Years smoked: 5 Smoking status: Former smoker Tobacco type: cigarettes Smoking end date: 07/14/83 Alcohol intake: never Alcohol use details: SOCIALLY Substance use: never Substance use type: does not use Living arrangements: with family Occupation/Education: retired Spiritual care concerns: No Anes - Eval Final PreProcedure Day of Procedure 11/09/24 07:17 Patient weight: normal Heart: regular rate and rhythm Lungs: clear to auscultation Airway: Mallampati scale class II Neurological: alert and oriented Last oral intake: >/= 8 hours ASA classification: II Emergent: no Anesthetic plan: proceed Anesthesia type and monitoring: general GIVS and standard monitoring Results Review: All pre-operative results and documents have been reviewed as part of the pre- operative evaluation. Informed Consent: The patient's anesthetic plan and its attendant risks and benefits were discussed with the patient/family/POA. Questions were solicited and answers provided to the satisfaction of the patient/family/POA.
--- NOTE | 2024-11-09 07:49 | PM.HPGS ---
History of Present Illness History of Present Illness Consent: Risks, benefits, and alternatives have been discussed and questions answered. Patient agrees to proceed with procedure. Chief complaint: Encounter for screening for malignant neoplasm of Narrative: Isabel Mcintyre is a 74 year old female with last colonoscopy 5 years ago, sister had colon cancer Review of Systems Review of Systems: All systems reviewed & are unremarkable except as noted in HPI and below PMFSH Past Medical History Medical History (Updated 11/09/24 @ 07:50 by Adrien Gomez MD) Family history of colon cancer Skin cancer Surgical History Surgical History H/O elbow surgery Bilateral History of shoulder surgery Bilateral Family History Family History Sibling Carcinoma of colon Sibling Acute myocardial infarction Mother Acute myocardial infarction Social History Social History Years smoked: 5 Smoking status: Former smoker Tobacco type: cigarettes Smoking end date: 07/14/83 Alcohol intake: never Alcohol use details: SOCIALLY Substance use: never Substance use type: does not use Living arrangements: with family Occupation/Education: retired Spiritual care concerns: No Meds Home Medications and Allergies Home Medications ?Medication ?Instructions ?Recorded ?Confirmed ?Type biotin 5 mg capsule 5 mg PO DAILY 07/12/21 11/09/24 History calcium carbonate (Calcium 600) 600 mg PO DAILY 07/12/21 11/09/24 History cholecalciferol (vitamin D3) 25 25 mcg PO DAILY 07/12/21 11/09/24 History mcg (1,000 unit) capsule hydrochlorothiazide 25 mg tablet 25 mg PO DAILY 07/12/21 11/09/24 History magnesium 250 mg tablet 500 mg PO DAILY 07/12/21 11/09/24 History omega-3 fatty acids 1,000 mg 1,000 mg PO DAILY 07/12/21 11/09/24 History capsule (Fish Oil Concentrate) Allergies Allergy/AdvReac Type Severity Reaction Status Date / Time No Known Allergies Allergy Unknown Verified 11/09/24 06:51 Vital Signs Vital Signs - 24 hr 11/09/24 06:52 Temperature 96.9 F L Pulse Rate 75 Respiratory Rate 20 Blood Pressure 103/45 L Pulse Oximetry 100 Oxygen Delivery Room Air Exam Const: General: comfortable and no acute distress HENMT: Face/Nose/Sinus: Normal nares present Eyes: General: appearance normal, both eyes and all related structures Neck: Neck: no JVD Resp: Auscultation: clear to auscultation bilaterally Cardio: Rate: regular rate Rhythm: regular rhythm GI: Inspection: non-distended GI Palp: Yes Soft to palpation Skin: General skin exam: normal color Neuro: General: gait normal Speech: normal speech Extrem: General: normal to inspection Psych: Mental Status: mental status grossly normal Assessment and Plan Assessment and plan (1) Family history of colon cancer: Code(s): Z80.0 - Family history of malignant neoplasm of digestive organs Status: Acute Assessment and Plan: colonoscopy
[2024-11-09 08:10] VITALS: BP 80/45; PULSE 83; RESP 15; O2SAT 99
[2024-11-09 08:20] VITALS: BP 95/58; PULSE 78; RESP 13; O2SAT 100
[2024-11-09 08:30] VITALS: BP 113/67; PULSE 75; RESP 14; O2SAT 97
== END 2024-11-09 08:50 | disposition home or self-care (01) ==
PROVIDERS: PCP Emergency Medicine; Referring Provider Emergency Medicine; Visit Provider Internal Medicine Gastroenterology
PROC: 0DJD8ZZ Inspection of Lower Intestinal Tract, Via Natural or Artificial Opening Endoscopic (ICD-10-PCS; CPT 45378; principal; 2024-11-09 08:00)
DX: Z12.11 Encounter for screening for malignant neoplasm of colon (principal); K64.8 Other hemorrhoids; Z98.890 Other specified postprocedural states; Z87.891 Personal history of nicotine dependence; Z85.828 Personal history of other malignant neoplasm of skin; Z80.0 Family history of malignant neoplasm of digestive organs; Z82.49 Family history of ischemic heart disease and other diseases of the circulatory system
CPT/HCPCS: G0105; J2003; J2704; J7120

== ENCOUNTER 2024-11-25 09:51 | Outpatient (CLI) | payer MEDICARE, OTHER, SELFPAY ==
--- NOTE | ~2024-11-25 | MM_ITS ---
EXAMINATION: MM scrn pacheco implant BI w sally HISTORY: Screening mammogram TECHNIQUE: Craniocaudal and mediolateral oblique 3-D tomosynthesis images with implant displacement a nd synthetic 2-D images were generated. Craniocaudal and mediolateral oblique views of the breasts wi thout implant displacement were obtained using full field digital mammography. CAD analysis was submi tted and interpreted. COMPARISON: Comparison to multiple prior studies sequentially, with oldest reviewed study dated 10/2019. BREAST PARENCHYMAL COMPOSITION: Not dense: There are scattered areas of fibroglandular density. FINDINGS: There is no evidence of suspicious mass, calcification, or architectural distortion to sugg est malignancy in either breast. There has been no suspicious interval change. IMPRESSION: 1. No mammographic evidence of malignancy. 2. Recommend routine screening mammography in one year. BI-RADS Category 1: Negative Reviewed, dictated and finalized at location A.
--- OUTSIDE RECORDS SUMMARY | 2024-11-25 09:56 | XMS_ITS ---
Author Organization [employer] Address [address] [facility] [address] [place] [address] Care Team Providers Care Pilot Boat Operator Name Role Phone Unknown, Primary Primary Care Provider Unavailab tess Haresh Silva Unavailable [phone] FullSoraida roblero Unavailable [phone] Results Component Value Reference Range Notes Flu - Myla ([id number]) Reviewed date:06/22/2024 10:21:15 AM Interpretation:neg Performing Lab: Notes/Report: neg COVID - Myla ([id number]) Reviewed date:06/22/2024 10:21:34 AM Interpretation:neg Performing Lab: [...] [place] [address] [facility] [place] [address] 06/22/2024 Soraida Fullgrapp Body mass index [BMI [...] Isabel MCKEON MDOB:[birth year] (74 yo F)Acc No.[id number]:06/22/2024 Patient: Isaebl MEEK Provider: Meggan Weston PA-C :1950 A ge:74 Y S ex:Female Date:06/22/2024 Address:[address] [place] [address] Elie hidalgo, [facility] Pcp:Primary Unknown Subjective: * Chief Complaints: * [...] es v isit was completed via: [employer] oxy.mo Coronavirus Screening H ave you had a [...] COVID-19 Coronavirus infection within the last 14 days? [address] you or anyone in your [...] ago and given azithromycin. Patient has taken nyxr-zom-oahdoez medication without relief of symptoms. Patient presents [...] , Headache, Syncope, Seizures, Paralysis, Numbness/loss of sensation. Hematology/Oncology Patient denies easy bleeding. * Medical History: [...] CHEST: Equal expansion, no increased work of breathing. LUNGS: w heezing throughout, diminished at bases.. [...] and signs L AB: Flu - Myla ([id number]) (Collection Date & Time - 06/22/2024) n eg L AB: COVID - Myla (14423) (Collection Date & Time - 06/22/2024) n eg P rocedure: RSV ASSAY W/OPTIC (In house) (Performed Date - 06/22/2024) P OSITIVE 3. A cute bronchiolitis due to respiratory syncytial virus Notes: Respiratory Syncytial Virus (RSV) Infection: Care Instructions material was printed * Procedure Codes: 3 078F DIAST BP < 80 MM [id number] SYST BP LT 130 MM [id number] BMI<30 AND >=22 CALC & [id number] MED LIST DOCD IN [id number] RVW MEDS BY RX/DR IN [id number] Influenza A&B - second unit, Modifiers: QW 16805 YISEL-CoV-2 Antigent Test REID, Modifiers: QW 66060 NEB/MDI RX [id number] N-INVAS EARPLS OXIMTRY FO2 SAT 1 [id number] RSV ASSAY W/OPTIC * Follow Up: p rn (Reason: If no improvement or worsening of symptoms) * * Sign off status: Completed true * Provider: Meggan Weston PA-C Date: 1 08/23/2023 Generated for Printi ng/Amanda/eTransmitting on: 0 11/25/2024 10:56 AM EDT History and Physical Notes * [...] ago and given azithromycin. Patient has taken tfsl-kxc-bgwhpul medication without relief of symptoms. Patient presents for further evaluation. Has anyone in your household or immediate care experienced a recent onset of flulike symptoms including fever of 100.4 or higher, cough or difficulty breathing?: No Have you or anyone in your h ousehold traveled by plane or cruise within the last 14 days?: No Have you or any immediate [facility] member come into contact with a patient [...] applicable charges.: Yes visit was completed via:: Star[employer] Examination Category Sub-Category Detail Notes Category Not [...]
--- OUTSIDE RECORDS SUMMARY | 2024-11-25 09:56 | XMS_ITS ---
Author Organization [facility] Address [address] [place] [address] Care Team Providers Care Cargo And Container Inspector Name Role Phone Unknown, Primary Primary Care Provider Unavailab Haresh Terrell Unavailable [phone] REASON FOR VISIT meds from yesterdays appt Social History Sex Assigned At : Social History Observation Description Sex Assigned At Unknown Encounters Encounter Location Date Provider Diagnosis [facility] [address] [place] [address] 06/23/2024 Haresh Silva Plan Of Treatment No Information Progress Notes * Isabel MCKEON MDOB:[birth year] (74 yo F)Acc No.[id number]:06/23/2024 Patient: Ta Isabel MASON :1950 A ge:74 Y S ex:Female Address:[address] [place] [address] [facility] [address] * true * Date: Generated for Printi ng/Faxing/eTransmitting on: 0 11/25/2024 10:56 AM EDT
--- OUTSIDE RECORDS SUMMARY | 2024-11-25 09:56 | XMS_ITS | Referral Summary ---
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 Based on machine cross-calibration and [...] by the International Society of Clinical Densitometry. [id number] Naomie Almanzar MD IMG DXA PROCEDURES Final Resu lt * COLONOSCOPY REPORT (04/28/2017) Anatomical Region Laterality Modality Other Provider Scanning GI PROCEDURE ORDERABLES Final Result from Last 3 Months or Most Recently Relevant to Health Maintenance Insurance MEDICARE Member Subscriber Plan / Payer (Ef fective 2017-Present) Name:HAL MCKEON Member ID:[id number] Relation to Subscriber:Self Name:Hal Mckeon Subscriber ID:[id number] Payer ID:[id number] Group ID:Not on file Type:MEDICARE TRADITIONAL Address: [address] [place] [id number] [place] MEDICARE [place] Care Teams Printed Circuit Board Reworker Relationship Specialty Start Date End Date Mehul Gonzalez MD PCP - General 04/17/17
--- OUTSIDE RECORDS SUMMARY | 2024-11-25 09:56 | XMS_ITS | Clinical Summary ---
Author Organization [employer] Address [address] [facility] [place] [address] Care Team Providers Care Timber Management Specialist Name Role Phone Mehul Gonzalez MD Primary Care Provider [phone] Source Comments [employer],non-owned Affiliates and Associated Physician Practices is amultiple site organization consisting of ambulatory clinics and hospital sitesin [place], [place] and [place]. This disclosure is being madepursuant to the Care Everywhere program and may not contain all information available regarding this patient. Last updated 18.[employer] Allergies No known active allergies Medications * [...] on file Legal Sex Female 3:29 PM GROUP PRESIDENT Gender Identity Not on file Sexual Orientation [...] patient's age to complete this topic Insurance [employer] MEDICARE Care Teams Timber Management Specialist Relationship Specialty Start Date End Date Mehul Gonzalez MD [address] [facility] [address] [place] [address] PCP - General Family Medicine 07/11/17
--- OUTSIDE RECORDS SUMMARY | 2024-11-25 09:56 | XMS_ITS | Encounter Summary ---
Author Organization [facility] Address [address] [place] [address] Care Team Providers Care Biomass Facilitator Name Role Phone Mehul Gonzalez MD Primary Care Provider Encounter Details Date Type Department Care Team (Late st Contact Info) Description 04/08/[address] 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
--- OUTSIDE RECORDS SUMMARY | 2024-11-25 09:56 | XMS_ITS | Clinical Summary ---
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 Based on machine cross-calibration and [...] by the International Society of Clinical Densitometry. [id number] Naomie Almanzar MD IMG DXA PROCEDURES Final Resu lt * COLONOSCOPY REPORT (04/28/2017) Anatomical Region Laterality Modality Other Provider Scanning GI PROCEDURE ORDERABLES Final Result from Last 3 Months or Most Recently Relevant to Health Maintenance Insurance MEDICARE [place] MEDICARE [place] Care Teams Agent Telegrapher Relationship Specialty Start Date End Date Mehul Gonzalez MD [facility] - General 04/17/17
--- OUTSIDE RECORDS SUMMARY | 2024-11-25 09:56 | XMS_ITS | Clinical Summary ---
Author Organization [facility] Address [address] [place] [address] Phone Care Team Providers Care International Trade Specialist Name Role Phone Unavailable Primary Care Provider Unavailabl e Allergies No known active allergies Medications nitrofurantoin (MACROBID) 100 mg capsule Take 1 capsule by mouth twice daily 10 Capsule 05/28/2018 1:49 PM CONTINUUM OF CARE MANAGER 05/28/2018 Active Encounters Date Type Department Care [...] on file Legal Sex Female 8:24 AM CONTINUUM OF CARE MANAGER Gender Identity Not on file Sexual Orientation [...] [facility] MEDICARE PART [facility]
--- OUTSIDE RECORDS SUMMARY | 2024-11-25 09:56 | XMS_ITS ---
Author Organization [email or web address] Address [address] [facility] [address] [place] [address] Care Team Providers Care Category Consultant Name Role Phone Unknown, Primary Primary Care Provider Unavailab Haresh Terrell Unavailable [phone] REASON FOR VISIT Rx Medications Medication SIG [...] Unknown Encounters Encounter Location Date Provider [facility] [address] [place] [address] 06/22/2024 Haresh Silva Upper respiratory tract infection, [...] Isabel MCKEON MDOB:[birth year] (74 yo F)Acc No.[id number]:06/22/2024 Patient: Isabel MEEK :1950 A ge:74 Y S ex:Female Address:[address] [place] [address] [place], [place] [address] * Refills Refill Azithromycin Tablet, 250 MG, Orally, 6, 2 tablet on the first day, then 1 tablet daily for 4 days, Once a day, 5 day(s), Refills=0 * true * Date: Generated for Kirsten rasheed/Amanda/Brijeshitting on: 0 11/25/2024 10:56 AM EDT
--- OUTSIDE RECORDS SUMMARY | 2024-11-25 09:56 | XMS_ITS | Patient Health Record ---
Author Organization [facility] Address [address] [facility] [address] [place] [address] Care Team Providers Care Harvest Field Ticketer Name Role Phone Unknown, Primary Primary Care Provider Unavailab tess SilvaHaresh Unavailable [phone] Josef Wang Unavailable [phone] EnricoSoraida Unavailable [phone] Allergies No Known Allergies Results Component Value Reference Range Notes Flu - Myla (22822) Reviewed date:06/22/2024 10:21:15 AM Interpretation:neg Performing Lab: Notes/Report: neg COVID - Myla (74557) Reviewed date:06/22/2024 10:21:34 AM Interpretation:neg Performing Lab: [...] Problem Status W/U Status Risk Notes Problem [id number] Urinary frequency (R35.0) Active confirmed Problem [id number] Vaginal burning (N94.9) Active confirmed Vital Signs [...] N/A Encounters Encounter Location Date Provider Diagnosis [facility] [address] [place] [address] 05/03/2024 Josef Wang Laceration without foreign body of left index finger without damage to nail, initial encounter S61.211A and Body mass index [BMI] 22.0-22.9, adult Z68.[address] [facility] [facility] [address] [place] [address] 05/12/2024 Josef Wang Body mass index [BMI ] 22.0-22.9, adult Z68.22 and Laceration without foreign body of left index finger without damage to nail, initial encounter S61.211A [facility] [address] [place] [address] 06/22/2024 Soraida Weston Body mass index [BMI ] 22.0-22.9, adult Z68.22 ; Other general symptoms and signs R68.89 ; Acute bronchiolitis due to respiratory syncytial virus J21.0 and Upper respiratory tract infection, unspecified type J06.9 [facility] [address] [place] [address] 06/22/2024 Haresh Silva Upper respiratory tract infection, unspecified type J06.9 [facility] [address] [place] [address] 06/23/2024 Haresh Silva Assessments Encounter Date Diagnosis [...] The initial injury was from an electric silk trimmer as such wound had very jagged [...] Medicare Unaligned [address] [place] [phone] [id number] Isabel Vaz Self - patient is the insured [address] [place] [address] [id number] Isabel Vaz Self - patient is the insured Medical (General) History Medical History History ICD Code Edema Surgical History Surgery Date(Month/Year) S/P right and left labrum repair shoulde r Right elbow surgery Hospitalization History Reason Date(Month/Year) See Surgical Hx
== END 2024-11-25 09:52 | disposition home or self-care (01) ==
LOC: ANHIMG 09:52
PROVIDERS: PCP Emergency Medicine; Visit Provider Obstetrics & Gynecology
DX: Z12.31 Encounter for screening mammogram for malignant neoplasm of breast (principal)
CPT/HCPCS: 77063; 77067